=== PATIENT | male | born 1990 ===

== ENCOUNTER → 2021-10-14 11:26 | Outpatient (CLI) | payer SELFPAY ==
--- NOTE | ~2021-10-14 | XR_ITS ---
EXAMINATION: XR abdomen/kub 1V DATE: 10/14/2021 12:13 INDICATION: Left flank pain TECHNIQUE: A supine view of the abdomen on 2 radiographs was obtained. COMPARISON: None. FINDINGS: Normal bowel gas pattern. No calcification is identified in the abdomen or pelvis. Visualized lower l ungs are clear. Heart size is normal. Bilateral decreased femoral head/neck offset which could predis pose towards cam-type femoral acetabular impingement. IMPRESSION: 1. Normal bowel gas pattern. No urolithiasis. Reviewed, dictated and finalized at location B.
== END ==
PROVIDERS: PCP Internal Medicine; Visit Provider Internal Medicine
DX: R10.9 Unspecified abdominal pain (principal)
CPT/HCPCS: 74018

== ENCOUNTER 2022-04-14 13:00 | Emergency (ER) | payer SELFPAY ==
[2022-04-14 13:31] VITALS: BP 104/63; PULSE 94; RESP 18; TEMP 36.8; O2SAT 100
--- NOTE | 2022-04-14 15:03 | PC.NURSE ---
patient states the wait is too long and left triage area
== END 2022-04-14 15:33 | disposition left against medical advice (07) ==
PROVIDERS: Emergency Provider Internal Medicine; PCP Internal Medicine
DX: F41.9 Anxiety disorder, unspecified (principal)
CPT/HCPCS: 99199

== ENCOUNTER 2022-08-25 16:04 | Emergency (ER) | payer SELFPAY ==
[2022-08-25 16:06] VITALS: BP 126/72; PULSE 82; RESP 20; TEMP 36.7; O2SAT 100
--- NOTE | 2022-08-25 17:18 | PC.NURSE ---
Pt refuses blood draw in triage. States I'll have a panic attack and pass out.
--- NOTE | 2022-08-25 19:15 | PC.NURSE ---
no answer at triage
--- NOTE | 2022-08-25 19:23 | PC.NURSE ---
Called pt to update vitals. No answer x2.
== END 2022-08-25 19:47 | disposition left against medical advice (07) ==
PROVIDERS: PCP Internal Medicine
DX: R10.9 Unspecified abdominal pain (principal)
CPT/HCPCS: 99199

== ENCOUNTER 2024-04-08 14:04 | Emergency (ER) | payer OTHER, SELFPAY ==
[2024-04-08 14:15] VITALS: BP 96/67; PULSE 79; RESP 16; TEMP 36.7; O2SAT 98
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
== END 2024-04-08 15:18 | disposition home or self-care (01) ==
LOC: ANHED 15:08
PROVIDERS: Emergency Provider Physician Assistant; PCP Internal Medicine
DX: S16.1XXA Strain of muscle, fascia and tendon at neck level, initial encounter (principal); F17.210 Nicotine dependence, cigarettes, uncomplicated; Z79.899 Other long term (current) drug therapy; F41.9 Anxiety disorder, unspecified; F43.10 Post-traumatic stress disorder, unspecified; V49.40XA Driver injured in collision with unspecified motor vehicles in traffic accident, initial encounter
CPT/HCPCS: 99283

== ENCOUNTER 2024-10-25 14:44 | Emergency (ER) | payer OTHER, SELFPAY ==
[2024-10-25] VITALS (13 sets, daily range): BP systolic 106–118; BP diastolic 73–85; PULSE 66–121; RESP 12–19; TEMP 36.6; O2SAT 99–100
--- NOTE | ~2024-10-25 | CT_ITS ---
EXAMINATION: CT diagnostic chest wo con DATE: 10/25/2024 17:45 INDICATION: left pleuritic chest pain, hx of pneumothorax TECHNIQUE: Computed tomography (CT) of the chest was performed with 100 mL Omnipaque-350 intravenous contrast. Automated exposure control and iterative reconstruction technique were employed. The dose-l ength product was 174.90 mGy-cm. COMPARISON: X-ray chest, same date. FINDINGS: CHEST: Thoracic aorta: No significant dilation or calcification. Lung parenchyma and airways: Biapical pleural scarring. Lungs otherwise clear. Multiple scattered sub -6 mm pulmonary nodules. Patent airways. Thoracic inlet, axillae and chest wall: No thyroid or soft tissue mass. No axillary lymphadenopathy. Mediastinum: No mass or lymphadenopathy. Heart and pericardium: Normal heart size. No pericardial effusion. Coronary artery calcifications: Absent. Pleura: No effusion or mass. Upper abdomen: No significant finding. Thoracic bones: No acute osseous finding in the chest. IMPRESSION: No acute thoracic process detected. Multiple sub-6 mm pulmonary nodules, which require no additional evaluation unless the patient is at high risk, in which case consider an optional low-dose noncontrast CT of the chest in 12 months. Reviewed, dictated and finalized at location K. IMPRESSION: No acute thoracic process detected. Multiple sub-6 mm pulmonary nodules, which require no additional evaluation unl ess the patient is at high risk, in which case consider an optional low-dose no ncontrast CT of the chest in 12 months.
--- NOTE | ~2024-10-25 | XR_ITS ---
EXAMINATION: XR chest 2V Exam Date/Time: 10/25/2024 15:28 CDT HISTORY: pleuritic chest pain Comparison: None. RESULT: Lines, tubes, and devices: None. Lungs and pleura: 9 mm nodular opacity over the peripheral right upper lung. No focal consolidation, pleural effusion, or pneumothorax. Cardiomediastinal silhouette: Stable. Other: No acute osseous or upper abdominal finding. IMPRESSION: No acute cardiopulmonary process. 9 mm nodular opacity over the peripheral right upper lung, may represent a pulmonary nodule or summat ion artifact. Recommend nonemergent but timely outpatient low-dose noncontrast CT of the chest for fu rther evaluation. Reviewed, dictated and finalized at location K. IMPRESSION: No acute cardiopulmonary process. 9 mm nodular opacity over the peripheral right upper lung, may represent a pulm onary nodule or summation artifact. Recommend nonemergent but timely outpatient low-dose noncontrast CT of the chest for further evaluation.
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
--- OUTSIDE RECORDS SUMMARY | 2024-10-25 14:46 | XMS_ITS | Clinical Summary ---
Author Organization [place] [address] [place] Address [address] [place] [id number] Care Team Providers Care Property Field Inspector Name Role Phone Suleiman Farfan MD Primary Care Provider [phone] Allergies No known active allergies Medications clonazePAM (KlonoPIN) 0.5 mg tablet Take 0.5 mg by mouth 3 (three) times a day 06/13/2021 Active escitalopram (LEXAPRO) 20 mg tablet Take 1 tablet (20 mg total) by mouth daily 90 tablet 3 08/17/2021 Active amitriptyline (ELAVIL) 10 mg tablet Take 1 tablet (10 mg total) by mouth nightly 60 tablet 08/17/2021 Active Active Problems Problem Noted Date Diagnosed Date Generalized anxiety disorder 08/17/2021 Assessment & Plan (08/17/2021 2:18 PM CDT): Stable, not well controlled; patient has some worsening symptoms as well as side effects given recent discontinuation of Lexapro due to running in a prescription Today start Lexapro 20 mg daily Continue Klonopin 0.5 mg p.r.n. for severe anxiety Given low body weight as well as generalized anxiety, will check thyroid levels today Primary insomnia 08/17/2021 Assessment & Plan (08/17/2021 2:18 PM CDT): Not well controlled, started over the past 2 months; patient has difficulty falling asleep, as well as multiple nighttime awakenings Patient reports racing thoughts with mental fatigue, both physically and does not feel tired Has regular bedtime around 10:30 p.m. Will start amitriptyline 10 mg nightly, follow-up at next appointment to evaluate response to therapy Immunizations Immunization Administration Dates Next Due Influenza, Unspecified 04/22/2021 Pfizer SARS-CoV-2 Monovalent Vaccination (12+ Yrs) PURPLE 12/08/2020,11/17/2020 Surgical History Surgery Date Site/Laterality Comments WRIST FRACTURE SURGERY 05/21/2005 - 05/20/2006 Right Medical History Medical History Date Comments Anxiety Spontaneous pneumothorax Family History Medical History Relation Name Comments Crohn's disease Father Crohn's disease Half-Sister Heart Bypass Maternal Grandfather Lung disease Maternal Grandfather Emphysema Maternal Grandmother Breast cancer Mother Diabetes Mother Brain cancer Paternal Grandfather COPD Paternal Grandmother Relation Name Status Comments Father Half-Sister Other Maternal Grandfather Maternal Grandmother Mother Paternal Grandfather Paternal Grandmother Social History Tobacco Use Types Packs/Day Years Used Date Smoking Tobacco: Every Day Cigarettes Smokeless Tobacco: Former Chew AUDIT-C Answer Date Recorded Q1: How often do you have a drink containing alcohol? 4 or more times a week 08/17/2021 Q2: How many drinks containi ng alcohol do you have on a typical day when you are drinking? 1 or 2 Q3: How often do you have si x or more drinks on one occasion? Never 08/17/2021 PHQ-2 Answer Date Recorded PHQ-2 Total Score 0 08/17/2021 Sex and Gender Information Value Date Recorded Sex Assigned at Not on file Legal Sex Male 11:55 PM CDT Gender Identity Not on file Sexual Orientation Not on file Obstetrics History Last Filed Vital Signs Vital Sign Reading Time Taken Comments Blood Pressure 94/72 08/17/2021 12:43 PM CDT Pulse 83 08/17/2021 12:43 PM CDT Temperature 37.1 C (98.8 F) 08/02/2021 3:22 PM CDT Respiratory Rate 16 08/17/2021 12:43 PM CDT Oxygen Saturation 98% 08/17/2021 12:43 PM CDT Inhaled Oxygen Concentration - - Weight 59.1 kg (130 lb 6.4 oz) 08/17/2021 12:43 PM CDT Height 177.5 cm (5' 9.88) 08/17/2021 12:43 PM C DT Body Mass Index 18.77 08/17/2021 12:43 PM CDT Plan of Treatment Health Maintenance Due Date Last Done Comments Hepatitis C Screening 1988 DTaP/Tdap/Td Vaccine (1 - Tdap) 12/19/1999 Varicella Vaccines (1 of 2 - 13+ 2-dose series) 2001 Hepatitis B Screening 2006 Regular Well Visit/Exam 18-64 2006 Pneumococcal vaccine <65 (1 of 2 - PCV) 12/19/2007 Depression Screening 08/17/2022 08/17/2021 Covid-19 Vaccine (3 - 2023-2 5 season) 2024 12/08/2020, 11/17/2020 Influenza Vaccine (Season Ended) 2025 04/22/2021 HPV Vaccines Aged Out No longer eligi ble based on patient's age to complete this topic Care Teams Property Field Inspector Relationship Specialty Start Date End Date Suleiman Farfan MD [address] [place] [address] PCP - General Family Medicine 08/17/21
--- OUTSIDE RECORDS SUMMARY | 2024-10-25 14:46 | XMS_ITS | Referral Summary ---
Author Organization [place] [address] [place] Address [address] [place] [phone] Care Team Providers Care Remote Coders Name Role Phone Suleiman Farfan MD Primary Care Provider [phone] Allergies No known active allergies Medications clonazePAM [...] SARS-CoV-2 Monovalent Vaccination (12+ Yrs) PURPLE 12/08/2020,11/17/2020 Social History Tobacco Use Types Packs/Day Years [...] on file Sexual Orientation Not on file Last Filed Vital Signs Vital Sign Reading [...] 08/17/2021 12:43 PM CDT Plan of Treatment Not on file Care Teams Remote Coders Relationship Specialty Start Date End [place] [address] PCP - General Family Medicine 08/17/21
--- NOTE | 2024-10-25 15:02 | ECG_ITS ---
Test Date: 2024-10-25 16:09:05 Measurements Intervals [place] Rate: 67 P: 63 DC: 121 QRS: 84 QRSD: 94 T: 69 QT: 371 QTc: 394 Interpretive Statements SINUS RHYTHM MINIMAL Q WAVES- ANTEROLAT/INF LEADS BASELINE ARTIFACT- V4 BORDERLINE ECG No previous ECG available for comparison Electronically Signed On 10-25-2024 16:15:18 CDT by Blaze Mendoza D.O.
[2024-10-25] MEDS: LORazepam (*CRX) 1 MG TABLET PO (15:15)
--- OUTSIDE RECORDS SUMMARY | 2024-10-25 15:18 | XMS_ITS | Referral Summary ---
Author Organization [facility] [address] [place] Address [address] [place] [id number] Care Team Providers Care Research Attorney Name Role Phone Suleiman Farfan MD Primary Care Provider [phone] Allergies No known active allergies Medications clonazePAM [...] of Treatment Not on file Care Teams Research Attorney Relationship Specialty Start Date End [place] [address] PCP - General Family Medicine 08/17/21
--- OUTSIDE RECORDS SUMMARY | 2024-10-25 15:18 | XMS_ITS | Clinical Summary ---
Author Organization [facility] [address] [place] Address [address] [place] [id number] Care Team Providers Care Intensivist Name Role Phone Suleiman Farfan MD Primary Care Provider [phone] Allergies No known active allergies Medications clonazePAM [...] age to complete this topic Care Teams Intensivist Relationship Specialty Start Date End Date Suleiman Farfan MD [address] [place] [address] PCP - General Family Medicine 08/17/21
--- NOTE | 2024-10-25 15:32 | ED.GENADULT ---
HPI - General Adult General Chief complaint: Unspecified Stated complaint: rib pain, hx of pneumo Time Seen by Provider: 10/25/24 15:02 History of Present Illness HPI narrative: 33-year-old male with history of anxiety and reported spontaneous pneumothorax in 2010 presents to the emergency department for left-sided chest pain for the past 2 days. Patient denies injury trauma. States the pain is a constant dull ache but is worse with deep inspiration, sneezing and movement of his torso. He states when he lays in a supine position he can feel the pain in his left upper back. He denies cough, congestion, hemoptysis, lower extremity edema, history of VTE, recent surgeries or hospitalizations, abdominal pain. He is endorsing some shortness of breath but attributing this to shallow breathing from splinting due to pain. He also notes that he has been sleeping on a hard surface and hospital because his is been in and out of the hospital over the past week. He is concerned he may have slept on his ribs around. Related Data Allergies Allergy/AdvReac Type Severity Reaction Status Date / Time No Known Allergies Allergy Verified 04/08/24 14:06 Review of Systems Review of Systems: All systems reviewed & are unremarkable except as noted in HPI and below PMFSH Past Medical History Medical History Encounter to establish care Adult BMI <19 kg/sq m PTSD (post-traumatic stress disorder) Anxiety Right wrist fracture Surgical History Surgical History History of open reduction and internal fixation (ORIF) procedure Right wrist Social History Social History Smoking packs per day: 0.75 Smoking cigarettes per day: 15.0 Smoking status: Current every day smoker Tobacco type: cigarettes Alcohol intake: current Alcohol use details: Pt states that he drinks 2 beers 4 days a week. Gender identity (if verbalized by the patient): Male Exam Narrative: GENERAL: Anxious-appearing, well-nourished, and in no acute distress. HEAD: Normocephalic, atraumatic. EYES: EOMI. ENT: Nares clear, no rhinorrhea or epistaxis. Mucous membranes moist. NECK: Supple. CHEST: Clear to auscultation. No respiratory distress. No tachypnea. Patient satting 99% on room air and speaking in full sentences HEART: Regular rate and rhythm. No murmur heard. Normal peripheral pulses. ABDOMEN: Soft, nontender, nondistended, normal active bowel sounds. EXTREMITIES: Normal range of motion. No edema. Negative Homans bilaterally SKIN: Warm, dry, no rash. NEURO: No focal deficits. Alert and oriented x3 Course Vital Signs Vital signs: Vital Signs Pulse Rate 121 H 10/25/24 14:49 Respiratory Rate 18 10/25/24 14:49 Blood Pressure 118/85 10/25/24 14:49 Pulse Oximetry 99 10/25/24 14:49 Oxygen Delivery Room Air 10/25/24 14:49 Temperature 97.8 F 10/25/24 18:22 Pulse Rate 69 10/25/24 17:15 Respiratory Rate 16 10/25/24 17:15 Blood Pressure 106/73 10/25/24 17:15 Pulse Oximetry 100 10/25/24 17:15 Oxygen Delivery Room Air 10/25/24 14:49 Medical Decision Making [facility] Narrative Medical decision making narrative: 33-year-old male with history of anxiety and reported spontaneous pneumothorax in 2010 presents to emergency department for atraumatic pleuritic left chest pain, worse with movement, sneezing and deep inspiration for the past 2 days. Patient is anxious appearing. Lung sounds are unremarkable. Will obtain lab work, chest x-ray, EKG and troponin. In triage his heart rate was 121. On my evaluation patient's heart rate was 80 bpm. When nurse entered the exam room to established an IV, patient became very anxious and his heart rate increased to 140s. He endorses a history of vasovagal syncope when getting his labs drawn. He is requesting anxiety medications prior to IV placement. Ativan provided. IV placed w/o syncope. EKG shows normal sinus rhythm with normal OR interval, normal QRS duration, normal QTC, no ST elevations or depressions. Troponin within normal limits. CBC without leukocytosis or anemia. Chemistries are unremarkable. Lipase within normal limits. D-dimer undetectable, wells score is low risk. Chest x-ray shows no acute cardiopulmonary process but does note a 9 mm nodular opacity over the peripheral right upper lung which may represent a pulmonary nodule. Given patient's history of spontaneous pneumothorax and persistent symptoms, will obtain CT chest without contrast to evaluate for small pneumothorax that was not detected on chest x-ray. CT chest shows no acute thoracic process detected. There is multiple sub 6 nodules retrograde no additional evaluation unless the patient is at high risk in which case consider on a low-dose noncontrast CT of the chest in 12 months. Patient family at bedside updated on results. Patient is resting comfortably in exam bed states he feels much better after the Ativan and fluids. Tachycardia has resolved. Suspect MSK etiology versus pleurisy. Will provide a dose of Toradol and some naproxen to the pharmacy. Advised follow-up with PCP discussed strict ED return precautions. He and his family are agreeable with the plan verbalized understanding. Discharged in stable condition. Vital Signs Vital Signs: Vital Signs Pulse Rate 121 H 10/25/24 14:49 Respiratory Rate 18 10/25/24 14:49 Blood Pressure 118/85 10/25/24 14:49 Pulse Oximetry 99 10/25/24 14:49 Oxygen Delivery Room Air 10/25/24 14:49 Temperature 97.8 F 10/25/24 18:22 Pulse Rate 69 10/25/24 17:15 Respiratory Rate 16 10/25/24 17:15 Blood Pressure 106/73 10/25/24 17:15 Pulse Oximetry 100 10/25/24 17:15 Oxygen Delivery Room Air 10/25/24 14:49 Lab Data 10/25/24 15:54 10/25/24 15:54 Labs: Lab Results 10/25/24 Range/Units 15:54 WBC 7.5 (4.5-10.0) K/mm3 RBC 5.05 (4.6-6.20) M/mm3 Hgb 15.3 (14.0-18.0) g/dL Hct 47.4 (42.0-52.0) % MCV 93.9 (80-100) fl MCH 30.3 (26-34) pg MCHC 32.3 (32-36) g/dl RDW 12.8 (11.5-14.5) % Plt Count 151 (150-375) k/mm3 MPV 10.1 (7.4-10.4) fl Immature Gran % (Auto) 0.3 (0-0.5) % Neut % (Auto) 77.2 H (45.5-73.1) % Lymph % (Auto) 13.2 L (18.3-44.2) % [place] % (Auto) 7.6 (2.6-8.5) % Eos % (Auto) 1.3 (0-4.4) % Baso % (Auto) 0.4 (0.2-1.2) % Lymph # (Auto) 0.99 (0.9-3.2) K/mm3 [place] # (Auto) 0.6 (0.1-0.6) K/mm3 Eos # (Auto) 0.1 (0-0.3) K/mm3 Baso # (Auto) 0.0 (0.0-0.1) K/mm3 Abs Immat Gran (auto) 0.02 (0.00-0.031) K/mm3 Absolute Neuts (auto) 5.8 (1.3-6.7) K/mm3 Absolute Nucleated RBC 0.000 (0.0-0.012) K/mm3 Nucleated RBC % 0.0 (0.0-0.2) % PT 13.6 (11.1-14.7) Seconds INR 1.0 APTT 28.1 (22.3-36.8) Seconds D-Dimer < 0.27 (<0.48) ug/mL Sodium 140 (137-145) mmol/L Potassium 4.4 (3.4-5.0) mmol/L Chloride 106 (98-107) mmol/L Carbon Dioxide 25 (22-30) mmol/L Anion Gap 9 (4-12) mmol/L BUN 13 D (9-20) mg/dL Creatinine 1.17 (0.7-1.3) mg/dL Estim Creat Clear Calc 66 ml/min Estimated GFR > 60 (59 - ) Glucose 97 (65-110) mg/dL Calcium 9.6 (8.4-10.2) mg/dL Total Bilirubin 0.6 (0.2-1.3) mg/dL AST 25 (17-59) U/L ALT 25 (6-50) U/L Alkaline Phosphatase 36 L (38-126) U/L Troponin I 0.015 (0.000-0.034) ng/mL NT-Pro-B Natriuret Pep < 20 (19.9-100) pg/mL Total Protein 7.8 (6.3-8.2) g/dL Albumin 4.8 (3.5-5.1) g/dL Lipase 126 (23-300) U/L Discharge Plan Discharge Clinical Impression: Rib pain on left side, Multiple pulmonary nodules Patient Disposition: Home Condition: Stable Instructions: Antibiotic Form, Chest Wall Pain (ED) Additional Instructions: Your evaluated in the emergency department for left-sided rib pain. Your workup shows no evidence of a pneumothorax. I suspect her symptoms are due to musculoskeletal etiology as discussed. Please take anti-inflammatories as directed along with muscle relaxers and lidocaine patches. Follow up with her primary care provider. Incidentally your found to have multiple sub 6 mm pulmonary nodules. Follow-up with your PCP about this is you may need repeat scanning in 12 months. Return to the emergency department if you develop shortness of breath, worsening or changing pain, you began coughing up blood, develop a fever, or other concerning symptoms. Patient Language: Mexican Prescriptions: New cyclobenzaprine 10 mg tablet 10 mg PO TID PRN (Reason: muscle spasm) Qty: 14 0RF lidocaine 5 % adhesive patch,medicated 1 patch topical DAILY Qty: 15 0RF Rx Instructions: leave on most painful area for up to 12 hrs. do not use more than 1 patch in a 24-hour period. naproxen 500 mg tablet 500 mg PO BID PRN (Reason: pain) Qty: 20 0RF No Action escitalopram oxalate 20 mg tablet 20 mg PO DAILY Qty: 30 1RF clonazepam 0.5 mg tablet 0.5 mg PO TID Qty: 15 0RF cyclobenzaprine 10 mg tablet 10 mg PO HS PRN (Reason: muscle spasm) Qty: 10 0RF Follow-up/Referrals: Tripp,MD Karan [Primary Care Provider] -
[2024-10-25] MEDS: SODIUM CHLORIDE 0.9% IV 1,000 ML 999 ML IV CONT (15:56)
[2024-10-25 15:59] LABS: Basophils Percent Auto 0.4 % (0.2-1.2); Eosinophils Absolute Auto 0.1 K/mm3 (0-0.3); Eosinophils Percent Auto 1.3 % (0-4.4); Hematocrit 47.4 % (42.0-52.0); Hemoglobin 15.3 g/dL (14.0-18.0); Immature Granulocyte Absolute 0.02 K/mm3 (0.00-0.031); Immature Granulocyte Percent A 0.3 % (0-0.5); Lymphocytes Absolute Auto 0.99 K/mm3 (0.9-3.2); Lymphocytes Percent Auto 13.2 % (18.3-44.2); Mean Corpuscular HGB Conc 32.3 g/dl (32-36); Mean Corpuscular Hemoglobin 30.3 pg (26-34); Mean Corpuscular Volume 93.9 fl (80-100); Mean Platelet Volume 10.1 fl (7.4-10.4); Monocytes Absolute Auto 0.6 K/mm3 (0.1-0.6); Monocytes Percent Auto 7.6 % (2.6-8.5); Neutrophils Absolute Auto 5.8 K/mm3 (1.3-6.7); Neutrophils Percent Auto 77.2 % (45.5-73.1); Platelet Count Result 151 k/mm3 (150-375); Red Blood Count 5.05 M/mm3 (4.6-6.20); Red Cell Distribution Width 12.8 % (11.5-14.5); White Blood Count 7.5 K/mm3 (4.5-10.0)
[2024-10-25 16:08] LABS: Alanine Aminotransferase 25 U/L (6-50); Albumin Level 4.8 g/dL (3.5-5.1); Alkaline Phosphatase 36 U/L (38-126); Anion Gap 9 mmol/L (4-12); Aspartate Amino Transferase 25 U/L (17-59); Bilirubin,Total 0.6 mg/dL (0.2-1.3); Blood Urea Nitrogen 13 mg/dL (9-20); Calcium 9.6 mg/dL (8.4-10.2); Carbon Dioxide 25 mmol/L (22-30); Chloride 106 mmol/L (98-107); Estimated CRCL calculation 66 ml/min; Estimated Glomerular Filt Rate > 60; Glucose 97 mg/dL (65-110); Lipase 126 U/L (23-300); Potassium 4.4 mmol/L (3.4-5.0); Sodium 140 mmol/L (137-145); Total Protein 7.8 g/dL (6.3-8.2)
[2024-10-25 16:10] LABS: Prothrombin Time 13.6 Seconds (11.1-14.7)
[2024-10-25 16:11] LABS: Partial Thromboplastin Time 28.1 Seconds (22.3-36.8)
[2024-10-25 16:20] LABS: NT Pro B Type Natriuretic Pept < 20 pg/mL (19.9-100); Troponin I 0.015 ng/mL (0.000-0.034)
[2024-10-25 16:22] LABS: D Dimer < 0.27 ug/mL (<0.48)
[2024-10-25] MEDS: KETOROLAC 15 MG/ML VIAL (*BKC) IV PUSH (18:23)
== END 2024-10-25 18:42 | disposition home or self-care (01) ==
PROVIDERS: Emergency Provider Physician Assistant; PCP Internal Medicine
DX: R07.81 Pleurodynia (principal); R91.8 Other nonspecific abnormal finding of lung field; F41.9 Anxiety disorder, unspecified; F43.10 Post-traumatic stress disorder, unspecified; F17.210 Nicotine dependence, cigarettes, uncomplicated; Z79.899 Other long term (current) drug therapy; R94.31 Abnormal electrocardiogram [ECG] [EKG]; R06.02 Shortness of breath
CPT/HCPCS: 36415; 71046; 71250; 80053; 83690; 83880; 84484; 85025; 85380; 85610; 85730; 93005; 96361; 96374; 99284; A9270; J1885; J7030